=== PATIENT | male | born 1975 ===

== ENCOUNTER 2024-12-15 16:58 | Emergency (ER) | payer OTHER ==
[2024-12-15] MEDS ORDERED: Fluorescein Opthalmic Strip ONE (18:46)
[2024-12-15] MEDS ORDERED: Proparacaine 0.5% Opth 15 ML BOT ONE (18:46)
== END 2024-12-15 19:44 | disposition home or self-care (01) ==
LOC: EEVIPCON 16:58 → ERS 16:58
DX: S05.01XA Injury of conjunctiva and corneal abrasion without foreign body, right eye, initial encounter (principal); H11.31 Conjunctival hemorrhage, right eye; X58.XXXA Exposure to other specified factors, initial encounter
CPT/HCPCS: 99283